=== PATIENT | female | born 1955 | race Caucasian/White ===

== ENCOUNTER 2020-02-27 09:57 | Outpatient (CLI) | payer BC, SELFPAY ==
--- NOTE | ~2020-02-27 | MM_ITS ---
EXAMINATION: MM screening [facility] BI w sylvester HISTORY: Screening mammogram TECHNIQUE: Craniocaudal and mediolateral oblique 3-D tomosynthesis images were obtained and synthetic 2-D images were generated. CAD analysis was submitted and interpreted. COMPARISON: 02/23/2019, 01/09/2018, 01/03/2017 bilateral digital screening mammogram examinations BREAST PARENCHYMAL COMPOSITION: The breasts are heterogeneously dense, which may obscure small masses . FINDINGS: Stable mild fibroglandular asymmetry. There is no evidence of suspicious mass, calcificatio n, or architectural distortion to suggest malignancy in either breast. There has been no suspicious i nterval change. IMPRESSION: 1. No mammographic evidence of malignancy. 2. Recommend routine screening mammography in one year. BI-RADS Category 2: Benign finding(s). Reviewed, dictated and finalized at location B. IOLOGY NURSE PRACTITIONER
--- NOTE | ~2020-02-27 | DEXA_ITS ---
Bone Density Report Name: Magaly Luna Age: 64 Sex: Female Ethnicity: White Date of : 1955 Indication: osteopenia; monitoring treatment; height loss; asthma or emphysema; postmenopausal Referring Provider: Renay, Jazlyn Study: Bone densitometry was performed. Exam Date: February 27, 2020 Accession number: [id number] Bone Density: Region BMD T-score Z-score Classification AP Spine (L1, L2, L3) 0.800 -2.0 -0.3 Osteopenia Femoral Neck (Left) 0.749 -0.9 0.6 Normal Total Hip (Left) 0.923 -0.2 1.0 Normal Total Hip Bilateral Avg 0.939 -0.1 1.2 Normal Femoral Neck (Right) 0.780 -0.6 0.9 Normal Total Hip (Right) 0.954 0.1 1.3 Normal World Health Organization criteria for BMD impression classify patients as: Normal (T-score at or above -1.0), Osteopenia (T-score between -1.0 and -2.5), or Osteoporosis (T-score at or below -2.5). 10-year Fracture Risk: FRAX not reported because: Treated for osteoporosis Previous Exams: Region Exam Age BMD T-score BMD Change BMD Change Date g/cm2 vs Baseline vs Previous AP Spine(L1, L2, L3) 02/27/2020 64 0.800 -2.0 -0.059(-6.9%)# 0.017(2.2%) 02/23/2019 63 0.783 -2.1 -0.076(-8.9%)# -0.035(-4.2%)# 04/06/2010 54 0.818 -1.8 -0.042(-4.8%)* -0.042(-4.8%)* 04/07/2006 50 0.860 -1.4 Total Hip(Left) 02/27/2020 64 0.923 -0.2 -0.049(-5.0%)# -0.011(-1.2%) 02/23/2019 63 0.934 -0.1 -0.038(-3.9%)# -0.032(-3.3%)# 04/06/2010 54 0.966 0.2 -0.006(-0.6%) -0.006(-0.6%) 04/07/2006 50 0.972 0.2 Total Hip(Right) 02/27/2020 64 0.954 0.1 0.036(3.9%)# 0.031(3.4%)* 02/23/2019 63 0.922 -0.2 0.005(0.5%)# -0.033(-3.4%)# 04/06/2010 54 0.955 0.1 0.038(4.1%)* 0.038(4.1%)* 04/07/2006 50 0.918 -0.2 *Denotes significance at 95% confidence level, LSC for AP Spine = 0.022 g/cm2, LSC for Total Hip = 0.027 g/cm2 Clinical Information Provided by Patient: Is being treated for osteoporosis Has used the following medications: Vitamin D, Calcium Has the following medical conditions: Asthma or Emphysema Patient maximum height was 66 Menopause Age: 53 Does not regularly consume dairy products Onset of menses at age 14 Number of children 2 Impression: The patient has low bone mass, based on the Total Spine T-score. No significant bone loss was observed. Discussion: PATIENT UNDER TREATMENT WITH NO SIGNIFICANT BMD LOSS SINCE LAST EXAM. In an untreated patient,
== END 2020-02-27 09:58 | disposition home or self-care (01) ==
LOC: ANHIMG 10:00
PROVIDERS: PCP Family Medicine; Visit Provider Nurse Practitioner
DX: Z12.31 Encounter for screening mammogram for malignant neoplasm of breast (principal); Z78.0 Asymptomatic menopausal state
CPT/HCPCS: 77063; 77067; 77080

== ENCOUNTER 2021-04-08 16:04 | Outpatient (CLI) | payer OTHER, SELFPAY ==
--- NOTE | ~2021-04-08 | MM_ITS ---
EXAMINATION: MM screening [facility] BI w sylvester HISTORY: Screening TECHNIQUE: Craniocaudal and mediolateral oblique 3-D tomosynthesis images were obtained and synthetic 2-D images were generated. CAD analysis was submitted and interpreted. COMPARISON: Comparison to multiple prior studies sequentially, with oldest reviewed study dated 09/30. BREAST PARENCHYMAL COMPOSITION: The breasts are heterogeneously dense, which may obscure small masses . FINDINGS: There are new focal asymmetries in the lateral aspect of the right breast on CC view. The l eft breast is stable without evidence for malignancy. IMPRESSION: 1. New right breast asymmetries. 2. Additional mammographic views and possible breast ultrasound are recommended. BI-RADS Category 0: Incomplete: Needs additional imaging evaluation. Reviewed, dictated and finalized at location A. R VEHICLE LECTURER IMPRESSION: 1. New right breast asymmetries. 2. Additional mammographic views and possible breast ultrasound are recommended . BI-RADS Category 0: Incomplete: Needs additional imaging evaluation.
== END 2021-04-08 16:05 | disposition home or self-care (01) ==
LOC: ANHIMG 16:07
PROVIDERS: PCP Family Medicine; Visit Provider Nurse Practitioner
DX: Z12.31 Encounter for screening mammogram for malignant neoplasm of breast (principal); R92.8 Other abnormal and inconclusive findings on diagnostic imaging of breast
CPT/HCPCS: 77063; 77067

== ENCOUNTER 2021-04-16 11:00 | Outpatient (CLI) | payer OTHER, SELFPAY ==
--- NOTE | ~2021-04-16 | MM_ITS ---
CORRECTED REPORT Changed from BI to RT. 04/16/2021 EXAMINATION: MM diagnostic willis BI w sylvester HISTORY: Right breast focal asymmetry on screening mammogram TECHNIQUE: Additional 3-D tomosynthesis images of the right breast were performed and synthetic 2-D images were generated. CAD analysis was submitted and interpreted. COMPARISON: 04/08/2021, 02/27/2020, 02/23/2019, 01/09/2018 BREAST PARENCHYMAL COMPOSITION: The breasts are heterogeneously dense, which may obscure small masses. FINDINGS: There is a return to baseline fibroglandular appearance with spot compression of the right breast in the area questioned on screening mammogram. IMPRESSION: 1. No mammographic evidence of malignancy. 2. Recommend routine screening mammography in one year. BI-RADS Category 1: Negative Reviewed, dictated and finalized at location A. [employer] MTDD
== END 2021-04-16 11:01 | disposition home or self-care (01) ==
LOC: ANHIMG 11:02
PROVIDERS: PCP Family Medicine; Visit Provider Obstetrics & Gynecology Gynecology
DX: R92.8 Other abnormal and inconclusive findings on diagnostic imaging of breast (principal)
CPT/HCPCS: 77061; 77062; 77065; 77066; G0279

== ENCOUNTER 2021-09-11 11:56 | Outpatient (CLI) | payer OTHER, SELFPAY ==
--- NOTE | ~2021-09-11 | XR_ITS ---
EXAMINATION: XR ankle LT min 3V DATE: 09/11/2021 12:22 INDICATION: Left lower leg pain TECHNIQUE: Anteroposterior, oblique, mortise, and lateral views of the left ankle were obtained. COMPARISON: None. FINDINGS: Alignment is normal. No fracture. Joint spaces are well maintained. No ankle joint effusion. Soft t issue swelling about the ankle both medially and laterally. IMPRESSION: 1. No left ankle joint effusion or osseous abnormality. Reviewed, dictated and finalized at location B.
--- NOTE | ~2021-09-11 | US_ITS ---
EXAMINATION: US venous doppler [facility] DATE: 09/11/2021 13:07 INDICATION: Left lower limb pain. TECHNIQUE: Grayscale ultrasound images without and with compression and Doppler ultrasound images of the left lower extremity veins were obtained. COMPARISON: None. FINDINGS: The visualized portions of left common femoral vein, profunda (deep) femoral vein, femoral vein, popl iteal vein, peroneal veins, posterior tibial veins, and greater saphenous vein outflow are patent. IMPRESSION: 1. No deep venous thrombosis. Reviewed, dictated and finalized at location A.
== END 2021-09-11 11:57 | disposition home or self-care (01) ==
PROVIDERS: PCP Family Medicine; Visit Provider Family Medicine
DX: M79.605 Pain in left leg (principal); M25.572 Pain in left ankle and joints of left foot
CPT/HCPCS: 73610; 93971

== ENCOUNTER 2022-03-03 09:39 | Outpatient (CLI) | payer OTHER, SELFPAY ==
--- NOTE | ~2022-03-03 | DEXA_ITS ---
Bone Density Report Name: MICHELLE VALENCIA Age: 66 Sex: Female Ethnicity: White Date of : 1955 Indication: osteopenia; monitoring treatment; height loss;postmenopausal Referring Provider: TANIA GUTHRIE Study: Bone densitometry was performed. Exam Date: March 03, 2022 Accession number: [id number] Bone Density: Region BMD T-score Z-score Classification AP Spine(L1, L2, L3) 0.784 -2.1 -0.3 Osteopenia Femoral Neck (Left) 0.767 -0.7 0.8 Normal Total Hip (Left) 0.957 0.1 1.4 Normal Femoral Neck (Right) 0.753 -0.9 0.7 Normal Total Hip (Right) 0.931 -0.1 1.2 Normal Total Hip Mean 0.944 0.0 1.3 Normal World Health Organization criteria for BMD impression classify patients as: Normal (T-score at or above -1.0), Osteopenia (T-score between -1.0 and -2.5), or Osteoporosis (T-score at or below -2.5). 10-year Fracture Risk: FRAX not reported because: Treated for osteoporosis Previous Exams: Region Exam Age BMD T-score BMD Change BMD Change Date g/cm2 vs Baseline vs Previous AP Spine (L1-L3) 03/03/2022 66 0.784 -2.1 0.001 (0.1%) -0.016 (-2.0%) 02/27/2020 64 0.800 -2.0 0.017 (2.2%) 0.017 (2.2%) 02/23/2019 63 0.783 -2.1 Total Hip(Left) 03/03/2022 66 0.957 0.1 0.022 (2.4%) 0.033 (3.6%)* 02/27/2020 64 0.923 -0.2 -0.011 (-1.2%) -0.011 (-1.2%) 02/23/2019 63 0.934 -0.1 Total Hip(Right) 03/03/2022 66 0.931 -0.1 0.009 (1.0%) -0.022 (-2.3%) 02/27/2020 64 0.954 0.1 0.031 (3.4%)* 0.031 (3.4%)* 02/23/2019 63 0.922 -0.2 *Denotes significance at 95% confidence level, LSC for AP Spine = 0.022 g/cm2, LSC for Total Hip = 0.027 g/cm2 Clinical Information Provided by Patient: Is being treated for osteoporosis Has used the following medications: Fosamax (i.e. alendronate), Vitamin D, Calcium Patient maximum height was 66 Menopause Age: 53 No regular weight bearing exercise Does not regularly consume dairy products Onset of menses at age 14 Number of children 2 Impression: The patient has low bone mass, based on the Total Spine T-score. No significant bone loss was observed. Discussion: PATIENT UNDER TREATMENT WITH NO SIGNIFICANT BMD LOSS SINCE LAST EXAM. In an untreated patient, BMD typically declines with age. A lack of decline or gain is usually a sign that treatment is efficacious and fracture risk is reduced. It is important to ask patients whether they are taking their medications a
== END 2022-03-03 09:40 | disposition home or self-care (01) ==
PROVIDERS: PCP Family Medicine; Visit Provider Obstetrics & Gynecology Gynecology
DX: Z78.0 Asymptomatic menopausal state (principal); M85.88 Other specified disorders of bone density and structure, other site
CPT/HCPCS: 77080

== ENCOUNTER 2022-06-23 13:16 | Outpatient (CLI) | payer OTHER, SELFPAY ==
--- NOTE | ~2022-06-23 | MM_ITS ---
EXAMINATION: MM screening [facility] BI w sylvester HISTORY: Screening mammogram TECHNIQUE: Craniocaudal and mediolateral oblique 3-D tomosynthesis images were obtained and synthetic 2-D images were generated. CAD analysis was submitted and interpreted. COMPARISON: Serial mammogram examinations dating back to 02/23/2019 BREAST PARENCHYMAL COMPOSITION: The breasts are heterogeneously dense, which may obscure small masses . FINDINGS: . Stable mild fibroglandular asymmetry. There is no evidence of suspicious mass, calcificat ion, or architectural distortion to suggest malignancy in either breast. There has been no suspicious interval change. IMPRESSION: 1. No mammographic evidence of malignancy. 2. Recommend routine screening mammography in one year. BI-RADS Category 1: Negative Reviewed, dictated and finalized at location A.
== END 2022-06-23 13:17 | disposition home or self-care (01) ==
PROVIDERS: PCP Family Medicine; Visit Provider Nurse Practitioner
DX: Z12.31 Encounter for screening mammogram for malignant neoplasm of breast (principal)
CPT/HCPCS: 77063; 77067

== ENCOUNTER 2022-12-08 15:30 | Outpatient (RCR) | payer OTHER, SELFPAY ==
--- NOTE | 2022-11-03 13:53 | PTOPEVAL1 ---
Assessment and note entered by Alma Tafoya, PT, DPT Evaluation Information Assessment Status Evaluation Diagnosis L hip pain Onset 1 year Subjective Information Pt states a year ago she was vacuuming her whole voodoo, for over 3 hours, and she had a lot of pain after that. She also was dog sitting last month and was walking 1.5 hours a day which increased her pain afterwards. She rides her bike 40 mins daily. She states her hip hurts too badly to lay on it. 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 Reported Pain Level Pain Score 2: Self Report Assessment PT Clinical Summary Magaly presents to therapy today for her initial evaluation with a diagnosis of L hip pain. Today she demonstrates hip ROM that is WNL is all directions, tenderness to palpation in her viktor piriformis, and decreased hip strength in all planes. She ambulates with increased lateral pelvic motion and has decreased hip strength in a single leg stance. Skilled physical therapy services are indicated to address the deficits noted above, to manage pain, to improve hip strength, and to return to PLOF. Plan of Care Interventions Electrical Stimulation,Gait Training,Hot Pack/Cold Pack,Manual Therapy,Neuro Re-education,Patient/ Caregiver Educati,Therapeutic Activities, Therapeutic Exercise,Ultrasound PT Services Indicated Yes Treatment Frequency and 2x/wk for 4 wks Duration These treatments will address the objective and functional deficits as defined above. The patient will be advanced safely and appropriately in order for the patient to progress towards his/her prior level of function. Additional exercises will be introduced and as well as a comprehensive home exercise program upon discharge, if needed, ?to ensure carryover of functional gains achieved in the clinic. This treatment plan has been reviewed and agreement upon by the patient.
--- NOTE | 2022-11-03 13:54 | OPREHPOC ---
Outpatient Therapy Plan of Care This is a Multidisciplinary Plan of Care that may contain components documented by all disciplines (PT, OT, and ST.) PT Problem 1 PT Problem #1 Knowledge Deficit PT Goal 1 Goal Pt to be IND with issued HEP Target Visit 8 PT Problem 2 PT Problem #2 Pain PT Goal 1 Goal Pt to report L hip pain no greater than 3/10 in the last week Target Visit 8 PT Goal 2 Goal Pt to report 70% improvement in overall symptoms Target Visit 8 PT Problem 3 PT Problem #3 Impaired Strength PT Goal 1 Goal Pt to improve global hip strength to grossly 4/5 Target Visit 8 PT Goal 2 Goal Pt to demonstrate good pelvic control during ambulation Target Visit 8 PT Problem 4 PT Problem #4 Impaired Functional Mobil PT Goal 1 Goal Pt to be able to lift and carry 20lb box without an increase in symptoms Target Visit 8 PT Goal 2 Goal Pt to be able to ambulate for 1 hour without an increase in pain the next day PT Problem 5 PT Problem #5 Impaired Balance PT Goal 1 Goal Pt to improve single leg balance to 15s on ea side Target Visit 8
--- NOTE | 2022-12-01 15:27 | PCPTNOTE ---
Patient called & cancelled scheduled appointment this date due. She has been rescheduled.
--- NOTE | 2022-12-08 16:11 | PTOPDC ---
Assessment and note entered by Alma Tafoya, PT, DPT Evaluation Information Assessment Status Discharge Diagnosis L hip pain Onset 1 year Subjective Information Pt states she is doing great. Reported Pain Level Pain Score 0: Self Report Assessment PT Clinical Summary Abdiel presents to therapy today for her progress report following 8 visits of skilled therapy to treat her L hip pain. Today she demonstrates hip ROM that is WNL is all directions, good hip strength, and a normal gait pattern. She has met all of her therapy goals and no longer requires skilled services at this time. She will be discharged. Plan of Care PT Services Indicated No
== END 2022-12-09 09:21 | disposition home or self-care (01) ==
LOC: ANHGOSHPT 15:30
PROVIDERS: PCP Family Medicine; Visit Provider Nurse Practitioner Family
DX: M25.552 Pain in left hip (principal)
CPT/HCPCS: 97110; 97112; 97140; 97161; 97530

== ENCOUNTER 2023-09-28 08:11 | Outpatient (CLI) | payer OTHER, SELFPAY ==
--- NOTE | ~2023-09-28 | MM_ITS ---
EXAMINATION: MM screening [facility] BI w sylvester HISTORY: Screening TECHNIQUE: Craniocaudal and mediolateral oblique 3-D tomosynthesis images were obtained and synthetic 2-D images were generated. CAD analysis was submitted and interpreted. COMPARISON: Comparison to multiple prior studies sequentially, with oldest reviewed study dated 04/2017. BREAST PARENCHYMAL COMPOSITION: Dense: The breasts are heterogeneously dense, which may obscure small masses FINDINGS: There is no evidence of suspicious mass, calcification, or architectural distortion to sugg est malignancy in either breast. There has been no suspicious interval change. IMPRESSION: 1. No mammographic evidence of malignancy. 2. Recommend routine screening mammography in one year. BI-RADS Category 1: Negative Reviewed, dictated and finalized at location B.
== END 2023-09-28 08:12 | disposition home or self-care (01) ==
LOC: ANHIMG 08:13
PROVIDERS: PCP Family Medicine; Visit Provider Family Medicine
DX: Z12.31 Encounter for screening mammogram for malignant neoplasm of breast (principal)
CPT/HCPCS: 77063; 77067

== ENCOUNTER 2024-01-03 08:14 | Outpatient (CLI) | payer OTHER, SELFPAY ==
[2024-01-03 13:24] LABS: Basophils Absolute Auto 0.1 K/mm3 (0.0-0.1); Eosinophils Absolute Auto 0.1 K/mm3 (0-0.3); Eosinophils Percent Auto 2.8 % (0-4.4); Hematocrit 40.8 % (37.0-47.0); Immature Granulocyte Absolute 0.01 K/mm3 (0.00-0.031); Immature Granulocyte Percent A 0.2 % (0-0.5); Lymphocytes Absolute Auto 1.75 K/mm3 (0.9-3.2); Lymphocytes Percent Auto 34.7 % (18.3-44.2); Mean Corpuscular HGB Conc 31.9 g/dl (32-36); Mean Corpuscular Hemoglobin 29.8 pg (26-34); Mean Corpuscular Volume 93.6 fl (80-100); Mean Platelet Volume 11.5 fl (7.4-10.4); Monocytes Absolute Auto 0.5 K/mm3 (0.1-0.6); Monocytes Percent Auto 10.5 % (2.6-8.5); Neutrophils Absolute Auto 2.6 K/mm3 (1.3-6.7); Neutrophils Percent Auto 50.8 % (45.5-73.1); Platelet Count Result 154 k/mm3 (150-375); Red Blood Count 4.36 M/mm3 (4.2-5.4); Red Cell Distribution Width 12.9 % (11.5-14.5)
[2024-01-03 14:24] LABS: Alanine Aminotransferase 16 U/L (6-35); Albumin Level 3.7 g/dL (3.5-5.1); Alkaline Phosphatase 85 U/L (38-126); Anion Gap 6 mmol/L (4-12); Aspartate Amino Transferase 37 U/L (14-36); Bilirubin,Total 0.3 mg/dL (0.2-1.3); Blood Urea Nitrogen 15 mg/dL (7-17); Carbon Dioxide 27 mmol/L (22-30); Chloride 104 mmol/L (98-107); Cholesterol 212 mg/dL (0-200); Estimated Glomerular Filt Rate > 60; Glucose 83 mg/dL (65-110); HDL Direct 47 mg/dL; Sodium 137 mmol/L (137-145); Triglycerides 282 mg/dL (<150)
[2024-01-03 14:36] LABS: LDL Cholesterol Direct 99 mg/dL
[2024-01-03 15:01] LABS: Thyroid Stimulating Hormone Reflex 0.945 uIU/mL (0.465-4.68)
== END 2024-01-03 08:15 | disposition home or self-care (01) ==
LOC: ANHGOSHLAB 08:16
PROVIDERS: PCP Family Medicine; Visit Provider Family Medicine
DX: R53.83 Other fatigue (principal); Z13.29 Encounter for screening for other suspected endocrine disorder; Z13.228 Encounter for screening for other metabolic disorders; E78.2 Mixed hyperlipidemia; Z13.220 Encounter for screening for lipoid disorders
CPT/HCPCS: 36415; 80053; 80061; 84443; 85025

== ENCOUNTER 2024-03-05 08:39 | Outpatient (CLI) | payer OTHER, SELFPAY ==
--- NOTE | ~2024-03-05 | DEXA_ITS ---
Bone Density Report Name: MICHELLE VALENCIA Age: 68 Sex: Female Ethnicity: White Date of : 1955 Indication: monitoring treatment; height loss; Referring Provider: NICO, [place] Study: Bone densitometry was performed. Exam Date: March 05, 2024 Accession number: [id number] Bone Density: Region BMD T-score Z-score Classification AP Spine(L1-L4) 0.851 -1.8 0.2 Osteopenia Femoral Neck (Left) 0.473 -3.4 -1.7 Osteoporosis Total Hip (Left) 0.588 -2.9 -1.5 Osteoporosis Femoral Neck (Right) 0.770 -0.7 1.0 Normal Total Hip (Right) 0.920 -0.2 1.2 Normal Total Hip Mean 0.754 -1.6 -0.2 Osteopenia World Health Organization criteria for BMD impression classify patients as: Normal (T-score at or above -1.0), Osteopenia (T-score between -1.0 and -2.5), or Osteoporosis (T-score at or below -2.5). 10-year Fracture Risk: FRAX not reported because: Some T-score for Spine Total or Hip Total or Femoral Neck at or below -2.5 Treated for osteoporosis Previous Exams: Region Exam Age BMD T-score BMD Change BMD Change Date g/cm2 vs Baseline vs Previous Total Hip(Left) 03/05/2024 68 0.588 -2.9 -0.346 (-37.1% -0.369 (-38.6% 03/03/2022 66 0.957 0.1 0.022 (2.4%) 0.033 (3.6%)* 02/27/2020 64 0.923 -0.2 -0.011 (-1.2%) -0.011 (-1.2%) 02/23/2019 63 0.934 -0.1 Total Hip(Right) 03/05/2024 68 0.920 -0.2 -0.003 (-0.3%) -0.011 (-1.2%) 03/03/2022 66 0.931 -0.1 0.009 (1.0%) -0.022 (-2.3%) 02/27/2020 64 0.954 0.1 0.031 (3.4%)* 0.031 (3.4%)* 02/23/2019 63 0.922 -0.2 *Denotes significance at 95% confidence level, LSC for Total Hip = 0.027 g/cm2 # Denotes dissimilar scan types or analysis methods Clinical Information Provided by Patient: Is being treated for osteoporosis Has used the following medications: Fosamax (i.e. alendronate), Calcium Patient maximum height was 66 Menopause Age: 53 No regular weight bearing exercise Does not regularly consume dairy products Onset of menses at age 15 Number of children 2 Impression: The patient has osteoporosis, based on the Left Femoral Neck T-score. No significant bone loss was observed. Discussion: PATIENT UNDER TREATMENT WITH NO SIGNIFICANT BMD LOSS SINCE LAST EXAM. In an untreated patient, BMD typically declines with age. A lack of decline or gain is usually a sign that treatment is efficacious and fracture risk is reduced. It is important to ask patients whether they are taking their medications and to encourage continued and appropriate compliance with their osteoporosis therapies to reduce fracture risk. It is also important to review their risk factors and encourage appropriate calcium and vitamin D intakes, exercise, fall prevention and other lifestyle measures. Follow-Up: Consider a repeat BMD and Vertebral Fracture Assessment (VFA) exam in 2 years or sooner if medically necessary, to reassess this patient's status. Reported by: VERONICA on 03/05/2024 9:16:00 AM. Reviewed, dictated and finalized at location A.
== END 2024-03-05 08:40 | disposition home or self-care (01) ==
LOC: ANHIMG 08:41
PROVIDERS: PCP Family Medicine; Visit Provider Nurse Practitioner
DX: M81.0 Age-related osteoporosis without current pathological fracture (principal); M85.89 Other specified disorders of bone density and structure, multiple sites; Z78.0 Asymptomatic menopausal state
CPT/HCPCS: 77080

== ENCOUNTER 2024-09-09 17:40 | Emergency (ER) | payer OTHER, SELFPAY ==
[2024-09-09 17:50] VITALS: BP 110/65; PULSE 76; RESP 16; TEMP 36.1; O2SAT 98
== END 2024-09-09 18:23 | disposition home or self-care (01) ==
PROVIDERS: Emergency Provider Nurse Practitioner Family; PCP Nurse Practitioner Family
DX: J32.9 Chronic sinusitis, unspecified (principal); J40 Bronchitis, not specified as acute or chronic; E78.00 Pure hypercholesterolemia, unspecified; H40.9 Unspecified glaucoma; K21.9 Gastro-esophageal reflux disease without esophagitis; J45.909 Unspecified asthma, uncomplicated
CPT/HCPCS: 99213; G0463

== ENCOUNTER 2024-10-04 08:11 | Outpatient (CLI) | payer OTHER, SELFPAY ==
--- NOTE | ~2024-10-04 | MM_ITS ---
EXAMINATION: MM screening willis BI w sylvester HISTORY: Screening mammogram TECHNIQUE: Craniocaudal and mediolateral oblique 3-D tomosynthesis images were obtained and synthetic 2-D images were generated. CAD analysis was submitted and interpreted. COMPARISON: 09/28/2023, 06/23/2022, 04/16/2021, 04/08/2021 BREAST PARENCHYMAL COMPOSITION:Dense: The breasts are heterogeneously dense, which may obscure small masses. FINDINGS: No suspicious mass, calcification, or architectural distortion are identified in either edwin ast to suggest malignancy. There has been no suspicious interval change. IMPRESSION: No mammographic evidence of malignancy. Recommend routine screening mammography in one year. BI-RADS Category 1: Negative Reviewed, dictated and finalized at location .
== END 2024-10-04 08:12 | disposition home or self-care (01) ==
LOC: ANHIMG 08:14
PROVIDERS: PCP Nurse Practitioner Family; Visit Provider Nurse Practitioner
DX: Z12.31 Encounter for screening mammogram for malignant neoplasm of breast (principal)
CPT/HCPCS: 77063; 77067

== ENCOUNTER 2025-02-12 16:04 | Outpatient (CLI) | payer OTHER, SELFPAY ==
--- OUTSIDE RECORDS SUMMARY | 2012-03-20 09:15 | XMS_ITS | Continuity of Care Document ---
Author Organization [facility] [place] [address] [facility] utimp Tamayo [address] [place] [phone] Phone Care Team Providers Care Ship Fitter Name Role Phone Miah Mueller MD Unavailable Unavailable Allergies, Adverse Reactions, Alerts Substance Reaction Status Criticality soap Active No Information povidone-iodine Active No Informati on Sulfa (Sulfonamide Antibiotics) Active No Information Medications Medication Instructions Dosage Effective Dates (start - stop) Status Comments Restasis 0.05 % Eye Dropperette instill 1 drop by Ophthalmic route every 12 hours into affected eye(s) 1.00 drop - Active Mimvey 1 mg-0.5 mg Tab - Active Singulair 10 mg Tab - Active Omnaris 50 mcg Nasal [place] - Active Procedures Procedure Date Eye Exam & Treatment Office/outpatient Visit, Est Office/outpatient Visit, Est Office/outpatient Visit, Est Office/outpatient Visit, Est Office/outpatient Visit, Est Office/outpatient Visit, Est Office/outpatient Visit, Est Eye Exam & Treatment Office/outpatient Visit, Est Office/outpatient Visit, Est Office/outpatient Visit, Est Office/outpatient Visit, Est Eye Exam, New Patient Corneal Pachymetry Advance Directives Directive Yes / No Effective Date File Name Resuscitation Not Answered N/A N/A Life Support Not Answered N/A N/A Intubation Not Answered N/A N/A Antibiotics Not Answered N/A N/A IV Fluid Support Not Answered N/A N/A Tube Feed Not Answered N/A N/A Other Directive N/A N/A WARNING:The information contained in this section is historical and is provided for information only and does not constitute a legal document or any assurance that the information is still accurate. Please verify the information with the weeks of the legal document before using it for clinical purposes. Encounters Encounter Description Practice Location Reason(s) For Visit Diagnoses Date Provider Providers Copied on Encounter [facility], [address] [place] [address] [address], [place], [place], [id number], tel:[phone] SEC [place] Professional No Information 2 Ervin Dooley. [address] [facility] [place], [id number], . tel:[phone] Referring Provider: Miah Moreira, [address] [place], [address] . tel:[phone] Office/outpat ient Visit, [facility] [place], [address] [place] [address] [address], [place], [place], [id number], tel:[phone] SEC [place] Professional No Information 2 Ervin Dooley. [address] [facility], [facility] [place], [address], [place]. tel:[phone] Referring Provider: Miah Moreira, [address] [place], [address] . tel:[phone] Office/outpat ient Visit, [facility], [address] [place] [address] [address], [place], [place], [id number], tel:[phone] SEC Bob [place] Professional No Information [address] Ervin [address]. [address] [facility] [place], [id number], . tel:[phone] Referring Provider: Miah Moreira, [address] [facility] [address], [place], [address] . tel:[phone] Office/outpat ient Visit, [facility], [address] [place] [address] [address], [place], [place], [address], tel:[phone] SEC Bob [place] Professional No Information Camilo- 1-201 2 Wankum Miah. [address] [facility], [facility] [place], [address], . tel:[phone] Referring Provider: Miah Kevinannalisekassidy Lillie, [address] [facility] [address], [place], [address] . tel:[phone] Office/outpat ient Visit, [facility], [address] [place] [address] [address], [place], [place], [id number], [place] tel:[phone] SEC [place] Professional No Information August- 4 2 Wankum Miah. [address] [facility], [facility] [place], [id number], [place]. tel:[phone] Referring Provider: Miah Moreira, [address] [facility] [address], [place], [address] . tel:[phone] Office/outpat ient Visit, [facility], [address], [place], [place], [address], [place] tel:[phone] SEC [place] Professional No Information 7201 2 Wankum Miah. [address] [facility], [facility] [place], [address], . tel:[phone] Referring Provider: Miah Ervin Moreira, [address] [facility] [place], [address] . tel:[phone] Office/outpat ient Visit, [facility] [place] [facility], [address], [place], [place], [address], [place] tel:[phone] SEC [place] Professional No Information Apr- 3-201 1 Ervin Dooley. [address] [facility], [facility] [place], [address], [place]. tel:[phone] Office/outpat ient Visit, [facility] [place] [facility], [address], [place], [place], [address], [place] tel:[phone] SEC [place] JEANETTE Professional No Information Jan- 2-201 0 Del Hassan. [address], [place], [place], [address], [place]. tel:[phone] Referring Provider: Miah Moreira, [address] [facility] [address], [place], [address] . tel:[phone] [facility], [address], [place], [place], [address], [place] tel:[phone] SEC [place] Professional No Information Aug-3 0-201 0 Mileskassidy Miah. [address] [employer] [place], [facility] [place], [address], [place]. tel:[phone] Office/outpat ient Visit, [facility], [address], [place], [place], [address], [place] tel:[phone] SEC Bob JEANETTE Professional No Information Nov-3 0-200 9 Mileskassidy Dooley. [address] [employer] [place], [facility] [address], [place], [place], [address], [place]. tel:[phone] [facility], [address], [place], [place], [address], [place] tel:[phone] SEC Bob [place] Professional No Information 9 Ervin Dooley. [address], [address] [place], [address], . tel:[phone] Office/outpat ient Visit, [facility], [address], [place], [place], [address], tel:[phone] SEC Bob REID Professional No Information 9 Ervin Dooley. [address], [place], [address], . tel:[phone] Office/outpat ient Visit, [facility], [address], [place], [place], [address], [place] tel:[phone] SEC Bob REID Professional No Information 9 Ervin Dooley. [address], [facility] [place], [address], [place]. tel:[phone] [facility], [address], [place], [place], [address], tel:[phone] SEC Bob [place] Professional No Information 9 Ervin Dooley. [address], [facility] [place], [address], . tel:[phone] Referring Provider: Miah Moreira [address] [place], [address] . tel:[phone] Family History Family Member Type Diagnosis Age At Onset Mother Problem (finding) degenerative disorder o f macula Payers Payer name Insurance type Covered democrat ID Authoriza tion(s) No Information Social History Type Description Quantity Date Captured Comments Alcohol Use Details No Caffeine Use Details 2 cups per day Tobacco Use Status No Information Smoking Status No Information Sex Female Chief Complaint And Reason For Visit No Information Reason For Referral Reason For Referral No Information History Of Present Illness Encounter Date Complaint History Of Prese nt Illness No Information Functional Status Date Functional Assessmen t No Information Instructions Date Instruction Additional Infor mation ocular htn but thick pachs KUNAL with rosacea - H MP and fish oilwill try restasis qd Assessments Type Assessment Date No Information Patient Care Teams Name Effective Dates (start - stop) Status Members No Information
--- NOTE | ~2025-02-12 | XR_ITS ---
EXAMINATION: XR chest 2V, 02/12/2025 16:15 INSPECTOR OPEN DIE HISTORY: R05.9 - Cough, unspecified COMPARISON: No comparisons available. Technique: 2 views obtained. Findings: The lungs are clear, no effusion. No pneumothorax. Heart is normal size. Mediastinal and hilar contours are within normal limits. Bony thorax no acute abnormality. Impression: No acute cardiopulmonary abnormality. Reviewed, dictated and finalized at location P. ECTOR OPEN DIE Impression: No acute cardiopulmonary abnormality.
--- OUTSIDE RECORDS SUMMARY | 2025-02-12 16:52 | XMS_ITS | Clinical Summary ---
Author Organization [facility] Address [address] [address] Phone Care Team Providers Care Polisher Eyeglass Frames Name Role Phone Unavailable Primary Care Provider Unavailabl e Medications hydrocortisone (PROCTOSOL HC) 2.5 % Cream Apply to rectum two to three times daily as needed. 1 Tube 2 08/14/2015 Active Social History Tobacco Use Types Packs/Day Years Used Date Smoking Tobacco: Never Assessed Comments Unknown Sex and Gender Information Value Date Recorded Sex Assigned at Not on file Legal Sex Female 11:46 PM CDT Gender Identity Not on file Sexual Orientation Not on file Plan of Treatment Health Maintenance Due Date Last Done Comments Hepatitis C Virus (HCV) Screening 1955 TdaP Immunization 1955 Cologuard 10/31/2000 Colonoscopy 10/31/2000 Colorectal Cancer Screening 10/31/2000 Immunochemical Fecal Occult Blood 10/31/2000 Pneumococcal Immunization (5 0+ years) (1 of 1 - PCV) 10/31/2005 Zoster Immunization (1 of 2) 10/31/2005 Influenza Immunization (#1) 2024 SARS-COV-2 Immunization ( - 2023- season) 2024 Respiratory Syncytial Virus (RSV) Immunization (Adult) (1 - 1-dose 75+ series) 10/31/2030 Hepatitis B Immunization Aged Out No longer eligible based on patient's age to complete this topic Human Papillomavirus (HPV) Immunization Aged Out No longer eligible b ased on patient's age to complete this topic Meningococcal Immunization (ACWY) Aged Out No longer eligible based on patient's age to complete this topic Rotavirus Immunization Aged Out No lo nger eligible based on patient's age to complete this topic
--- OUTSIDE RECORDS SUMMARY | 2025-02-12 16:52 | XMS_ITS | Clinical Summary ---
Author Organization [facility] Address [address] [place] [address] Phone Care Team Providers Care Fashion Photographer Name Role Phone Unavailable Primary Care Provider Unavailabl e Allergies Active Allergy Reactions Criticality Noted Date Comments Sulfa (Sulfonamide Antibiotics) Unknown 09/09 Medications CALCIUM CARBONATE-VITAM IN D3 ORAL Take by mouth. Acti ve FAMOTIDINE ORAL Take by mouth. Active montelukast (SINGULAIR) 10 mg tablet Take 10 mg by mouth daily at bedtime. Active timoloL maleate (TIMOPTIC) 0.5% solutionIndicat ions:Primary open angle glaucoma (POAG) of both eyes, moderate stage Administer 1 Drop in both eyes 2 times daily. 15 mL 3 5 Active atorvastatin (LIPITOR) 10 mg tablet Take 1 Tablet by mouth daily. 5 Active teriparatide (FORTEO) 20 mcg/dose (560mcg/2.24mL) pen INJECT 20 MCG UNDER THE SKIN ONE TIME DAILY IN ABDOMEN OR THIGH 5 Active oxyBUTYnin (DITROPAN) 5 mg tablet Take 0.5 Tablets by mouth 2 times daily. 5 Active albuterol sulfate HFA 90 mcg/actuation aerosol inhaler INHALE 2 PUFFS BY MOUTH EVERY 4 TO 6 HOURS NEEDED FOR COUGH, SHORTNESS OF BREATH, OR WHEEZING 5 Active Active Problems No known active problems Encounters Date Type Department Care Team Description 02/06/2025 External Device Data [facility] ABSTRACTION Provider, Abstract 02/05/2025 External Device Data [facility] ABSTRACTION Provider, Abstract 01/30/2025 External Device Data [facility] ABSTRACTION Provider, Abstract 01/29/2025 External Device Data [facility] ABSTRACTION Provider, Abstract 12/25/2024 External Device Data ST[facility] ABSTRACTION Provider, Abstract 12/18/2024 External Device Data STL ABSTRACTION Provider, Abstract 11/14/2024 External Device Data [facility] ABSTRACTION Provider, Abstract 11/13/2024 External Device Data ST[facility] ABSTRACTION Provider, Abstract from Last 3 Months Family History Medical History Relation Name Comments Macular Degen Father Glaucoma Mother Macular Degen Mother Relation Name Status Comments Father Mother Social History Tobacco Use Types Packs/Day Years Used Date Smoking Tobacco: Never Tobacco Cessation:Counseling Given: Not Answered Comments Unknown Sex and Gender Information Value Date Recorded Sex Assigned at Not on file Legal Sex Female 8:29 AM CDT Gender Identity Not on file Sexual Orientation Not on file Plan of Treatment Upcoming Encounters Date Type Department Care Team (Late st Contact Info) Description 07/10/2025 10:30 AM CDT Procedure visit [facility] - Ophthalmology [address] [place] [address] Musa Jennings MD [address] [place] [address] Health Maintenance Due Date Last Done Comments DTAP/TDAP/TD VACCINES (1 - Tdap) 10/31/1974 BREAST CANCER SCREENING 1995 COLORECTAL SCREENING 10/31/2000 Colorectal Cancer Screening 10/31/2000 FIT-DNA Q 3 years 10/31/2000 FIT/FOBT Q 1 year 10/31/2000 Flex Sig/CT Colonography Q 5 years 10/31/2000 PNEUMOCOCCAL VACCINE 50+ YEARS (1 of 1 - PCV) 11/01/19 06 ZOSTER VACCINE (1 of 2) 10/31/2005 OSTEOPOROSIS SCREENING 10/31/2020 INFLUENZA VACCINE (#1) 2024 RSV VACCINE (60+ or ) (1 - 1-dose 75+ series) 10/31/2030 Insurance [facility]
== END 2025-02-12 16:05 | disposition home or self-care (01) ==
PROVIDERS: PCP Nurse Practitioner Family; Visit Provider Nurse Practitioner Family
DX: R05.9 Cough, unspecified (principal); R53.83 Other fatigue
CPT/HCPCS: 71046